=== PATIENT | female | born 1970 | race Caucasian/White ===

== ENCOUNTER 2021-03-25 08:28 | Day surgery (SDC) | payer OTHER ==
[2021-03-25] MEDS ORDERED: MIDAZOLAM 2 MG/2 ML VIAL ONE (10:42)
[2021-03-25] MEDS ORDERED: fentaNYL citrate 0.05 MG/ML VIAL ONE (10:42)
[2021-03-25] MEDS ORDERED: LIDOCAINE 2% 100 MG/5 ML UJET TP ONE (10:42)
[2021-03-25] MEDS ORDERED: MIDAZOLAM 2 MG/2 ML VIAL IVP ONE (14:30)
[2021-03-25] MEDS ORDERED: fentaNYL citrate 0.05 MG/ML VIAL IVP ONE (14:30)
== END 2021-03-25 12:35 | disposition home or self-care (01) ==
LOC: MDS 08:28 → MMU 08:34 → MDS 12:35
PROVIDERS: ATTEND Internal Medicine Gastroenterology
DX: Z12.11 Encounter for screening for malignant neoplasm of colon (principal); K21.9 Gastro-esophageal reflux disease without esophagitis; K22.89 Other specified disease of esophagus; K29.80 Duodenitis without bleeding; Z79.899 Other long term (current) drug therapy
CPT/HCPCS: 36415; 43239; 45378; 81025; 86677; J2250; J3010